=== PATIENT | male | born 1960 | race Caucasian/White ===

== ENCOUNTER 2020-09-16 13:13 | Outpatient (REF) | payer MEDICARE, MEDICAID, SELFPAY ==
[2020-09-16 14:56] LABS: Alanine Aminotransferase 14 U/L (0-40); Albumin Level 3.8 g/dL (3.5-5.0); Alkaline Phosphatase 83 U/L (39-117); Anion Gap 14 (12-20); Aspartate Amino Transferase 16 U/L (5-37); Bilirubin Total 0.4 mg/dL (0.0-1.0); Blood Urea Nitrogen 38 mg/dL (9-16); Calcium 8.6 mg/dL (8.4-10.2); Carbon Dioxide 25 mmol/L (22-29); Chloride 110 mmol/L (96-108); Estimated Glomerular Filt Rate 21; Glucose Random 83 mg/dL (60-115); Potassium 4.6 mmol/L (3.3-5.1); Sodium 144 mmol/L (135-145); Total Protein 6.5 g/dL (6.5-8.0); Uric Acid 6.2 mg/dL (3.4-7.0)
== END 2020-09-16 13:14 | disposition home or self-care (01) ==
LOC: HO.LAB 13:13
PROVIDERS: PCP Internal Medicine; Visit Provider Student in an Organized Health Care Education/Training Program
DX: M10.9 Gout, unspecified (principal); Z79.899 Other long term (current) drug therapy
CPT/HCPCS: 36415; 80053; 84550; 99212

== ENCOUNTER 2021-09-16 12:07 | Outpatient (REF) | payer MEDICARE, MEDICAID, SELFPAY ==
[2021-09-16 13:54] LABS: Alanine Aminotransferase 15 U/L (0-40); Albumin Level 3.9 g/dL (3.5-5.0); Alkaline Phosphatase 74 U/L (39-117); Anion Gap 11 (12-20); Aspartate Amino Transferase 14 U/L (5-37); Bilirubin Total 0.3 mg/dL (0.0-1.0); Blood Urea Nitrogen 65 mg/dL (9-16); Carbon Dioxide 21 mmol/L (22-29); Chloride 110 mmol/L (96-108); Estimated Glomerular Filt Rate 15; Glucose Random 82 mg/dL (60-115); Potassium 5.4 mmol/L (3.3-5.1); Sodium 137 mmol/L (135-145); Total Protein 6.6 g/dL (6.5-8.0)
[2021-09-16 15:10] LABS: Uric Acid 5.9 mg/dL (3.4-7.0)
== END 2021-09-16 12:08 | disposition home or self-care (01) ==
LOC: HO.LAB 12:07
PROVIDERS: PCP Internal Medicine; Visit Provider Nurse Practitioner Family
DX: M10.9 Gout, unspecified (principal)
CPT/HCPCS: 36415; 80053; 84550; 99212

== ENCOUNTER → 2022-04-22 13:15 | Outpatient (BNVA) | payer MEDICARE, MEDICAID, SELFPAY | PROVIDERS: PCP Internal Medicine; Visit Provider Nurse Practitioner Family | DX: M10.9 Gout, unspecified (principal) | CPT/HCPCS: 99212 ==

== ENCOUNTER 2022-05-21 05:41 | Day surgery (SDC) | payer MEDICARE, MEDICAID, SELFPAY ==
[2022-05-12 11:45] VITALS: BMI 34.6
--- NOTE | 2022-05-20 09:41 | HO.ANESPROP2 ---
HPI - Anesthesia Eval Consult details Narrative: 62yo M for Left AV Fistula Creation No dialysis yet (Attempted fistula 3 times previously) [facility] Active Problems Active Problems: All Active Problems (Updated 05/12/22 @ 11:48 by Gisella Centeno RN) Stage 4 chronic kidney disease (Acute) Diabetes mellitus (Acute) Essential (primary) hypertension (Acute) Hyperparathyroidism (Acute) Melanoma in situ (Acute) Sleep apnea (Acute) Stroke (Acute) Gout (Acute) Past Medical History Medical History (Updated 05/12/22 @ 11:48 by Gisella Centeno RN) Chronic kidney disease CVA (cerebral vascular accident) Diabetes Gout HTN (hypertension) Hypothyroid Melanoma Nerve damage Schizoaffective disorder Sleep apnea Surgical History Surgical History (Updated 05/12/22 @ 11:44 by Gisella Centeno RN) H/O colonoscopy Hx of umbilical hernia repair S/P arteriovenous (AV) fistula creation Social History Social History (Updated 05/12/22 @ 10:55 by Gisella Centeno RN) Are you a primary patient care representative to a significant other at home: No Do you presently have visiting nurse or other home services: No Patient Tobacco Use Status: Never used Tobacco Use of substances other than those prescribed or required for medical reasons: No Have you been hit, kicked, punched, or otherwise hurt by someone within the past year? If so, by whom?: No Are you DNR?: No Advance Directives: No Advance Directives Information Provided: Yes (brochure mailed) Advance Directives on File: No Recently lost weight without trying: No Eating poorly because of decreased appetite: No Nutrition Risks: No Nutritional Risk Poor oral hygiene: No (upper & lower partials) Meds Allergies Allergy/AdvReac Type Severity Reaction Status Date / Time aripiprazole [Abilify] Allergy Intermediate Rash Verified 04/22/22 13:37 atorvastatin [Lipitor] Allergy Intermediate elevated Verified 04/22/22 13:37 muscle enzymes fish oil AdvReac Intermediate visual Verified 04/22/22 13:37 disturbance niacin AdvReac Intermediate visual Verified 04/22/22 13:37 [Niaspan Extended-Release] disturbance Home Medications Medication Instructions Recorded Confirmed Last Taken Type cholestyramine (with sugar) 4 gram 1 ea PO DAILY 09/16/20 05/12/22 Unknown History oral powder famotidine 20 mg tablet 20 mg PO BEDTIME 09/16/20 05/12/22 Unknown History risperidone 3 mg tablet (Risperdal) 3 mg PO BID 09/16/20 05/12/22 Unknown History benztropine 0.5 mg tablet 0.5 mg PO BID 09/16/21 05/12/22 Unknown History levothyroxine 25 mcg capsule 75 mcg PO DAILY 09/16/21 05/12/22 Unknown History sitagliptin 25 mg tablet (Januvia) 25 mg PO DAILY 09/16/21 05/12/22 Unknown History aspirin 81 mg tablet,delayed 81 mg PO DAILY 04/22/22 05/12/22 Unknown History release (Adult Low Dose Aspirin) divalproex 500 mg tablet,delayed 500 mg PO BEDTIME 04/22/22 05/12/22 Unknown History release (Depakote) cholecalciferol (vitamin D3) 25 1 tab PO DAILY 05/12/22 05/12/22 Unknown History mcg (1,000 unit) tablet (Vitamin D3) divalproex 250 mg tablet,extended 250 mg PO BEDTIME 05/12/22 05/12/22 Unknown History release 24 hr ezetimibe 10 mg tablet 1 tab PO DAILY 05/12/22 05/12/22 Unknown History perphenazine 8 mg tablet 1 tab PO BEDTIME 05/12/22 05/12/22 Unknown History Exam Exam Date and Time: May 20, 2022 0941 Height,Weight and Vital Signs: Height 5 ft 5 in Weight 94.347 kg Pertinent Lab Results Pertinent Lab Results: CBC 02/2022 WBC 8.6 Hgb 9.4 (L) Hct 28.1 (L) Plt 184 Narrative Narrative: EKG 01/2022 Sinus Tach @ 110 LAD Low volt QRS Nonspecific ST abnormality ECHO 01/2022 Techinically difficult study LV size is normal. LV wall thickness is moderately increased. Ventricular systolic function is vigorous. LVEF visually estimated at 65-75%. No definite regional WMA. Grade I DD with normal LA pressure No obvious valve dysfunction Central venous pressure is mildly elevated Unable to estimate PASP Carotid US 01/2022 Nml carotids with 1-49% stenosis Assessment and Plan Assessment Anesthesia Assessment: Chart Reviewed
[2022-05-21 06:27] VITALS: BP 130/71; PULSE 88; RESP 16; TEMP 36.3; O2SAT 98
[2022-05-21] MEDS: 0.9 % Sodium Chloride 1,000 ML 50 ML IVCONT (06:35)
[2022-05-21 06:37] LABS: Glucose, Whole Blood 83 mg/dL (60-115)
[2022-05-21 06:39] LABS: Anion Gap 17 (12-20); Carbon Dioxide 20 mmol/L (22-29); Chloride 112 mmol/L (96-108); Potassium 4.4 mmol/L (3.3-5.1); Sodium 145 mmol/L (135-145)
--- NOTE | 2022-05-21 07:22 | P.CONAN_ITS ---
[facility] Active Problems Active Problems: All Active Problems (Updated 05/12/22 @ 11:48 by Gisella Centeno RN) Stage 4 chronic kidney disease (Acute) Diabetes mellitus (Acute) Essential (primary) hypertension (Acute) Hyperparathyroidism (Acute) Melanoma in situ (Acute) Sleep apnea (Acute) Stroke (Acute) Gout (Acute) Past Medical History Medical History (Updated 05/12/22 @ 11:48 by Gisella Centeno RN) Chronic kidney disease CVA (cerebral vascular accident) Diabetes Gout HTN (hypertension) Hypothyroid Melanoma Nerve damage Schizoaffective disorder Sleep apnea Family History Family history of problems with anesthesia: No Surgical History Surgical History (Updated 05/12/22 @ 11:44 by Gisella Centeno RN) H/O colonoscopy Hx of umbilical hernia repair S/P arteriovenous (AV) fistula creation History of Problems with Anesthesia: No Social History Social History (Updated 05/12/22 @ 10:55 by Gisella Centeno RN) Are you a primary healthcare economics consultant to a significant other at home: No Do you presently have visiting nurse or other home services: No Patient Tobacco Use Status: Never used Tobacco Use of substances other than those prescribed or required for medical reasons: No Have you been hit, kicked, punched, or otherwise hurt by someone within the past year? If so, by whom?: No Are you DNR?: No Advance Directives: No Advance Directives Information Provided: Yes (brochure mailed) Advance Directives on File: No Recently lost weight without trying: No Eating poorly because of decreased appetite: No Nutrition Risks: No Nutritional Risk Poor oral hygiene: No (upper & lower partials) Meds Allergies Allergy/AdvReac Type Severity Reaction Status Date / Time aripiprazole [Abilify] Allergy Intermediate Rash Verified 04/22/22 13:37 atorvastatin [Lipitor] Allergy Intermediate elevated Verified 04/22/22 13:37 muscle enzymes fish oil AdvReac Intermediate visual Verified 04/22/22 13:37 disturbance niacin AdvReac Intermediate visual Verified 04/22/22 13:37 [Niaspan Extended-Release] disturbance Active Medications: Current Medications Sodium Chloride (Ns) 1,000 mls @ 50 mls/hr IVCONT .Q20H LUZ Last Admin: 05/21/22 06:35 Dose: 50 mls/hr Home Medications Medication Instructions Recorded Confirmed Last Taken Type cholestyramine (with sugar) 4 gram 1 ea PO DAILY 09/16/20 05/12/22 Unknown History oral powder famotidine 20 mg tablet 20 mg PO BEDTIME 09/16/20 05/12/22 Unknown History risperidone 3 mg tablet (Risperdal) 3 mg PO BID 09/16/20 05/12/22 Unknown History benztropine 0.5 mg tablet 0.5 mg PO BID 09/16/21 05/12/22 Unknown History levothyroxine 25 mcg capsule 75 mcg PO DAILY 09/16/21 05/12/22 Unknown History sitagliptin 25 mg tablet (Januvia) 25 mg PO DAILY 09/16/21 05/12/22 Unknown History aspirin 81 mg tablet,delayed 81 mg PO DAILY 04/22/22 05/12/22 Unknown History release (Adult Low Dose Aspirin) divalproex 500 mg tablet,delayed 500 mg PO BEDTIME 04/22/22 05/12/22 Unknown History release (Depakote) cholecalciferol (vitamin D3) 25 1 tab PO DAILY 05/12/22 05/12/22 Unknown History mcg (1,000 unit) tablet (Vitamin D3) divalproex 250 mg tablet,extended 250 mg PO BEDTIME 05/12/22 05/12/22 Unknown History release 24 hr ezetimibe 10 mg tablet 1 tab PO DAILY 05/12/22 05/12/22 Unknown History perphenazine 8 mg tablet 1 tab PO BEDTIME 05/12/22 05/12/22 Unknown History Exam Exam Date and Time: May 21, 202222 Height,Weight and Vital Signs: Height 5 ft 5 in Weight 94.347 kg Last Vital Signs Temp 97.3 F 05/21/22 06:27 Pulse 88 05/21/22 06:27 Resp 16 05/21/22 06:27 BP 130/71 05/21/22 06:27 Pulse Ox 98 05/21/22 06:27 O2 Del Method 05/21/22 06:27 Pertinent Lab Results Pertinent Lab Results: Laboratory Tests 05/21/22 05/21/22 06:12 06:32 Sodium 145 Potassium 4.4 Chloride 112 H Carbon Dioxide 20 L Anion Gap 17 POC Glucose 83 Airway Mallampati Class: III TM Dist: >3cm Neck ROM: Full Assessment and Plan Assessment Anesthesia Assessment: Anesthesia Plan Discussed and Chart Reviewed Final Anesthetic Review Family History of Problems with Anesthesia: No History of Problems with Anesthesia: No NPO: Yes ASA Class: III Final Preanesthetic Review: No Changes in Pt Med Stat, Meds/Allgs Chart Reviewed, Consent Obtained/Reviewed and Anes Risks/Benef Reviewed Patient Risk: Intermediate Procedure Risk: Low Anesthetic Plan Anesthetic Plan: MAC: Disposition: Standard PACU
[2022-05-21 09:41] VITALS: BP 135/63; PULSE 80; RESP 16; TEMP 36.4; O2SAT 100
--- NOTE | 2022-05-21 09:44 | P.OP_ITS ---
Operative Note Operative Note Date of Service: 05/21/22 Narrative: Pre-op Dx: Stage 4/5 CKD Post-op Dx: Stage 4/5 CKD Operation: Left arm brachial artery to antecubital vein AV fistula (side to side anastomosis) Surgeon: Usman Antonio MD Anesthesia: MAC, local Procedure: The patient was placed on the OR table in a supine position. Lower extremity compression devices were placed. The anesthesiologist administered the pre- operative antibiotic. An US of the veins was performed on the left arm. After successful induction of MAC anesthesia, the left arm was prepped and draped in a sterile fashion. A surgical timeout took place. Local anesthetic was used. An incision was made below the crease of the elbow on the forearm. The Bovie electrocautery was used to dissect through the subcutaneous tissue. The antecubital vein, upper arm cephalic vein, upper arm basilic vein, and lower forearm cephalic vein were isolated and skeletonized. Small branches were ligated and divided with 4-0 silk ties. The upper arm cephalic vein and the upper arm basilic vein and the forearm cephalic vein were distended using hep- saline and dilators. The brachial artery was identified, dissected and skeletonized. There was no intimal calcification. Small branches were ligated and divided using 4-0 silk ties. Proximal and distal control was achieved. An arteriotomy was made and the antecubital vein was directly sewn to the brachial artery using a 6-0 Prolene in a running fashion. This was a [id number] anastomosis. The clamps were released and a thrill was noted in all three outflow veins. Hemostasis was maintained. The incision was closed in layers. Surgical glue was applied. The hand was well perfused. The patient tolerated the procedure well. All instrument, sponge and needle counts were correct at the end of the case. Findings: [id number] anastomosis was created between the antecubital vein and the distal brachial artery. There are three outflow veins: the upper arm cephalic vein, the upper arm basilic vein and the forearm cephalic vein. The largest of the three is the upper arm basilic vein. A thrill can be felt in all three outflow veins.
[2022-05-21 09:56] VITALS: BP 135/63; PULSE 84; RESP 16; TEMP 36.4; O2SAT 100
[2022-05-21 10:11] VITALS: BP 120/75; PULSE 85; RESP 14; O2SAT 100
== END 2022-05-21 11:04 | disposition home or self-care (01) ==
PROVIDERS: Nurse Practitioner; PCP Internal Medicine; Visit Provider Transplant Surgery
PROC: (CPT 36821; principal; 2022-05-21 07:30)
DX: E11.22 Type 2 diabetes mellitus with diabetic chronic kidney disease (principal); I12.0 Hypertensive chronic kidney disease with stage 5 chronic kidney disease or end stage renal disease; N18.5 Chronic kidney disease, stage 5; Z79.84 Long term (current) use of oral hypoglycemic drugs; E03.9 Hypothyroidism, unspecified; F25.9 Schizoaffective disorder, unspecified; G47.30 Sleep apnea, unspecified; Z79.899 Other long term (current) drug therapy; Z88.8 Allergy status to other drugs, medicaments and biological substances; Z86.73 Personal history of transient ischemic attack (TIA), and cerebral infarction without residual deficits; Z98.890 Other specified postprocedural states
CPT/HCPCS: 36821; 36415; 80051; 82947; J0690; J1170

== ENCOUNTER → 2022-08-25 12:56 | Outpatient (BNVA) | payer MEDICARE, MEDICAID, SELFPAY | PROVIDERS: PCP Internal Medicine; Visit Provider Nurse Practitioner Family | DX: M10.9 Gout, unspecified (principal) | CPT/HCPCS: 99212 ==

== ENCOUNTER → 2022-12-08 14:38 | Outpatient (BNVA) | payer MEDICARE, MEDICAID, SELFPAY | PROVIDERS: PCP Internal Medicine; Visit Provider Nurse Practitioner Family | DX: M10.9 Gout, unspecified (principal); N18.9 Chronic kidney disease, unspecified; I77.0 Arteriovenous fistula, acquired | CPT/HCPCS: 99212 ==

== ENCOUNTER 2023-05-10 14:05 | Outpatient (AMB) | payer MEDICARE, MEDICAID, SELFPAY ==
--- NOTE | 2023-05-10 14:12 | A.OFFVIS_ITS ---
Intake Vital Signs 05/10/23 14:13 Height 5 ft 5 in Weight 208 lb 5.389 oz BMI 34.7 BP 128/74 Blood Pressure Location Rt brachial Position Sitting Pulse 73 Pulse Source Pulse Oximeter Temp 97.5 F Temp Source Skin Pulse Oximetry (%) 98 Intake Visit Reasons: Gout Intake Note: Patient presents today to follow up on Gout. Denies flare ups. Continues on Allopurinol 150mg daily Last seen 12/08/22 Geri Labs- done XR's- none Trapeze Performer Required: No Accompanied by: Self / Same As Patient Allergies aripiprazole [Abilify] Allergy (Intermediate, Verified 05/10/23 14:17) Rash atorvastatin [Lipitor] Allergy (Intermediate, Verified 05/10/23 14:17) elevated muscle enzymes fish oil Adverse Reaction (Intermediate, Verified 05/10/23 14:17) visual disturbance niacin [Niaspan Extended-Release] Adverse Reaction (Intermediate, Verified 05/10/23 14:17) visual disturbance Medication List - Last Reconciled 05/10/23 by Juve Osorio MD allopurinol 150 mg (1.5 x 100 mg) PO DAILY aspirin (Adult Low Dose Aspirin) 81 mg PO DAILY benztropine 0.5 mg PO BID cholecalciferol (vitamin D3) (Vitamin D3) 1 tab PO DAILY cholestyramine (with sugar) 4 gram 1 ea PO DAILY divalproex (Depakote) 500 mg PO BEDTIME divalproex ER 250 mg PO BEDTIME ezetimibe (Zetia) 10 mg PO DAILY famotidine 20 mg PO BEDTIME ketoconazole 2% 1 appl topical 2XW levothyroxine 75 mcg PO DAILY perphenazine 1 tab PO BEDTIME risperidone (Risperdal) 3 mg PO BID sitagliptin phosphate (Januvia) 25 mg PO DAILY HPI HPI Comments History of Present Illness Details 63-year-old male presents for follow-up of gout. He was last seen by Mariela Yates 11/2022 On allopurinol 150 mg daily. Patient denies any gout attacks for more than 2 years. He states that he is tolerating his allopurinol. He denies any new concerns today. He follows up regularly with his airplane pilot for his advanced stage renal insufficiency. . States that he should start dialysis in about 6 months [facility] Medical History Nerve damage CVA (cerebral vascular accident) Sleep apnea Schizoaffective disorder Melanoma Hypothyroid Diabetes HTN (hypertension) Chronic kidney disease Gout Surgical History H/O colonoscopy Hx of umbilical hernia repair S/P arteriovenous (AV) fistula creation Social History Are you a primary care director to a significant other at home: No Do you presently have visiting nurse or other home services: No Patient Tobacco Use Status: Never used Tobacco Review of Systems Const Reports weight gain Musc Denies arthralgias Physical Exam Vital Signs: Last Vital Signs Temp 97.5 F 05/10/23 14:13 Pulse 73 05/10/23 14:13 BP 128/74 05/10/23 14:13 Pulse Ox 98 05/10/23 14:13 BMI result Body Mass Index 34.7 Const General: cooperative, healthy appearing and comfortable Nutritional Appearance: obese Orientation/consciousness: patient oriented x3 Limitations: no limitations HEENT Head: Yes normocephalic and Yes atraumatic Mouth: moist mucous membranes Resp Effort & Inspection: normal respiratory effort and able to speak in complete sentences Auscultation: clear to auscultation bilaterally Skin General skin exam: no rashes or lesions noted Neuro General: patient oriented x3 Extrem Other: No active synovitis Pitting edema at least 2+ both lower extremities Assessment & Plan Assessment & Plan (1) Gout: Code(s): M10.9 - Gout, unspecified Qualifiers: Gout site: multiple sites Gout etiology: due to renal impairment Chronicity: chronic Presence of tophus: without tophus Qualified Code(s): M1A.39X0 - Chronic gout due to renal impairment, multiple sites, without tophus (tophi) Plan: Gout well controlled on allopurinol 150 mg daily.? Uric acid at goal at 5.8mg/dL (04/09).? ?He has stage 5 chronic kidney disease and follows regularly with Nephrology.? ?Continue allopurinol 150mg daily.? Labs before next visit in 6 months Plan I spent 15 minutes reviewing patient's chart, evaluating patient, ordering diagnostic workup, counseling patient and documenting in the chart Orders: Orders Basic Metabolic Panel 6 Months M10.9 - Gout, unspecified Uric Acid 6 Months M10.9 - Gout, unspecified Coding Level of Care Code Est Pt Level 3 (28547) Diagnoses Chronic gout due to renal impairment of multiple sites without tophus M1A.39X0 Gout site: multiple sites Gout etiology: due to renal impairment Chronicity: chronic Presence of tophus: without tophus
[2023-05-10 14:13] VITALS: BP 128/74; PULSE 73; TEMP 36.4; O2SAT 98; BMI 34.7
== END 2023-05-10 14:40 | disposition home or self-care (01) ==
PROVIDERS: PCP Internal Medicine; Referring Provider Internal Medicine; Visit Provider Student in an Organized Health Care Education/Training Program
DX: M1A.39X0 Chronic gout due to renal impairment, multiple sites, without tophus (tophi) (principal)
CPT/HCPCS: 99213

== ENCOUNTER → 2023-05-10 14:05 | Outpatient (BNVA) | payer MEDICARE, MEDICAID, SELFPAY | PROVIDERS: PCP Internal Medicine; Visit Provider Student in an Organized Health Care Education/Training Program | DX: M1A.39X0 Chronic gout due to renal impairment, multiple sites, without tophus (tophi) (principal) | CPT/HCPCS: 99212 ==

== ENCOUNTER 2023-11-03 13:12 | Outpatient (AMB) | payer MEDICARE, MEDICAID, SELFPAY ==
[2023-11-03 13:16] VITALS: BP 124/76; PULSE 69; O2SAT 99; BMI 33.9
--- NOTE | 2023-11-03 13:16 | A.OFFVIS_ITS ---
Vital Signs 11/03/23 13:16 Height 5 ft 5 in Weight 203 lb 11.314 oz BMI 33.9 BP 124/76 Blood Pressure Location Rt brachial Position Sitting Pulse 69 Pulse Source Pulse Oximeter Pulse Oximetry (%) 99 Oxygen Delivery Method Room Air Intake Visit Reasons: Gout Intake Note: Patient last seen 05/10/23 presents today for follow up and test results. Pt did not complete labs, unable to reach him by phone. Has new #, chart updated. Reports hes been seen at [facility] for celulitis. Has fistula on L arm Reports had ND seen at [facility] Adoption Counselor Required: No Accompanied by: Self / Same As Patient Allergies aripiprazole [Abilify] Allergy (Intermediate, Verified 11/03/23 13:24) Rash atorvastatin [Lipitor] Allergy (Intermediate, Verified 11/03/23 13:24) elevated muscle enzymes fish oil Adverse Reaction (Intermediate, Verified 11/03/23 13:24) visual disturbance niacin [Niaspan Extended-Release] Adverse Reaction (Intermediate, Verified 11/03/23 13:24) visual disturbance Medication List - Last Reconciled 11/03/23 by Juve Osorio MD allopurinol 150 mg (1.5 x 100 mg) PO DAILY aspirin (Adult Low Dose Aspirin) 81 mg PO DAILY benztropine 0.5 mg PO BID cholecalciferol (vitamin D3) (Vitamin D3) 1 tab PO DAILY cholestyramine (with sugar) 4 gram 1 ea PO DAILY divalproex (Depakote) 500 mg PO BEDTIME divalproex ER 250 mg PO BEDTIME ezetimibe (Zetia) 10 mg PO DAILY famotidine 20 mg PO BEDTIME ketoconazole 2% 1 appl topical 2XW levothyroxine 75 mcg PO DAILY metoprolol tartrate 25 mg PO BID perphenazine 1 tab PO BEDTIME risperidone (Risperdal) 3 mg PO BID sitagliptin phosphate (Januvia) 25 mg PO DAILY HPI Comments Details: 63-year-old male presents for follow-up of gout. He was last seen 04/2023 On allopurinol 150 mg daily. Patient denies any gout attacks for more than 2.5 years. He states that he is tolerating his allopurinol. He denies any new concerns today. He follows up regularly with his management architect for his advanced stage renal insufficiency. He has not been started on dialysis. He has a working fistula left forearm. States that he was getting ready for a colonoscopy recently and his heart rate went up to 190. States that he received a medication that stopped and restarted his heart. This sounds to me like an episode of [facility] Medical History Nerve damage CVA (cerebral vascular accident) Sleep apnea Schizoaffective disorder Melanoma Hypothyroid Diabetes HTN (hypertension) Chronic kidney disease Gout Surgical History H/O colonoscopy Hx of umbilical hernia repair S/P arteriovenous (AV) fistula creation Social History Are you a primary nonfarm animal caretaker to a significant other at home: No Do you presently have visiting nurse or other home services: No Patient Tobacco Use Status: Never used Tobacco Review of Systems Musc Denies arthralgias Physical Exam Vital Signs: Last Vital Signs Pulse 69 11/03/23 13:16 BP 124/76 11/03/23 13:16 Pulse Ox 99 11/03/23 13:16 Oxygen Delivery Method Room Air 11/03/23 13:16 BMI result Body Mass Index 33.9 Const General: cooperative, healthy appearing and comfortable Nutritional Appearance: obese Orientation/consciousness: patient oriented x3 Limitations: no limitations HEENT Head: Yes normocephalic and Yes atraumatic Mouth: moist mucous membranes Resp Effort & Inspection: normal respiratory effort and able to speak in complete sentences Auscultation: clear to auscultation bilaterally Skin General skin exam: no rashes or lesions noted Neuro General: patient oriented x3 Extrem Other: No active synovitis Pitting edema at least both lower extremities Assessment & Plan Assessment & Plan (1) Gout: Code(s): M10.9 - Gout, unspecified Category: Medical Qualifiers: Gout site: multiple sites Gout etiology: due to renal impairment Chronicity: chronic Presence of tophus: without tophus Qualified Code(s): M1A.39X0 - Chronic gout due to renal impairment, multiple sites, without tophus (tophi) Plan: Gout well controlled on allopurinol 150 mg daily.? Uric acid at goal at 5.8mg/dL (04/09).? ?He has stage 5 chronic kidney disease and follows regularly with Nephrology.? ?Continue allopurinol 150mg daily.? Patient stated that he had labs done recently and [facility], will request records. Labs before next visit in 6 months Plan I spent 15 minutes reviewing patient's chart, evaluating patient, ordering diagnostic workup, counseling patient and documenting in the chart Orders: Orders Basic Metabolic Panel 6 Months M1A.39X0 - Chronic gout due to renal impairment, multiple sites, without tophus (tophi) Uric Acid 6 Months M1A.39X0 - Chronic gout due to renal impairment, multiple sites, without tophus (tophi)
== END 2023-11-03 13:44 | disposition home or self-care (01) ==
PROVIDERS: PCP Internal Medicine; Visit Provider Student in an Organized Health Care Education/Training Program
DX: M1A.39X0 Chronic gout due to renal impairment, multiple sites, without tophus (tophi) (principal)
CPT/HCPCS: 99213

== ENCOUNTER → 2023-11-03 13:12 | Outpatient (BNVA) | payer MEDICARE, MEDICAID, SELFPAY | PROVIDERS: PCP Internal Medicine; Visit Provider Student in an Organized Health Care Education/Training Program | DX: M1A.39X0 Chronic gout due to renal impairment, multiple sites, without tophus (tophi) (principal); N18.5 Chronic kidney disease, stage 5 | CPT/HCPCS: 99212 ==

== ENCOUNTER 2024-05-03 13:37 | Outpatient (AMB) | payer MEDICARE, MEDICAID, SELFPAY ==
--- NOTE | 2024-05-03 13:42 | A.OFFVIS_ITS ---
Vital Signs 05/03/24 13:47 Height 5 ft 5 in Weight 195 lb 5.273 oz BMI 32.5 BP 122/74 Blood Pressure Location Rt brachial Position Sitting Pulse 78 Pulse Source Pulse Oximeter Pulse Oximetry (%) 95 Oxygen Delivery Method Room Air Intake Visit Reasons: Gout/lvm Intake Note: Patient presents for Gout. Allergies aripiprazole [Abilify] Allergy (Intermediate, Verified 05/03/24 13:46) Rash atorvastatin [Lipitor] Allergy (Intermediate, Verified 05/03/24 13:46) elevated muscle enzymes fish oil Adverse Reaction (Intermediate, Verified 05/03/24 13:46) visual disturbance niacin [Niaspan Extended-Release] Adverse Reaction (Intermediate, Verified 05/03/24 13:46) visual disturbance Medication List - Last Reconciled 05/03/24 by Juve Osorio MD allopurinol 150 mg (1.5 x 100 mg) PO DAILY aspirin (Adult Low Dose Aspirin) 81 mg PO DAILY benztropine 0.5 mg PO BID cholecalciferol (vitamin D3) (Vitamin D3) 1 tab PO DAILY cholestyramine (with sugar) 4 gram 1 ea PO DAILY divalproex (Depakote) 500 mg PO BEDTIME divalproex ER 250 mg PO BEDTIME ezetimibe (Zetia) 10 mg PO DAILY famotidine 20 mg PO BEDTIME ketoconazole 2% 1 appl topical 2XW levothyroxine 75 mcg PO DAILY metoprolol tartrate 25 mg PO BID perphenazine 1 tab PO BEDTIME risperidone (Risperdal) 3 mg PO BID sitagliptin phosphate (Januvia) 25 mg PO DAILY HPI Comments Details: 64-year-old male presents for follow-up of gout. He was last seen 04/2023 On allopurinol 150 mg daily. Patient denies any gout attacks for more than 3 years. He states that he is tolerating his allopurinol. He denies any new concerns today. 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 He has not been started on dialysis. He has a working fistula left forearm. [facility] Medical History Nerve damage CVA (cerebral vascular accident) Sleep apnea Schizoaffective disorder Melanoma Hypothyroid Diabetes HTN (hypertension) Chronic kidney disease Gout Surgical History H/O colonoscopy Hx of umbilical hernia repair S/P arteriovenous (AV) fistula creation Family History Father Heart disease Social History Are you a primary child care center assistant director to a significant other at home: No Do you presently have visiting nurse or other home services: No Patient Tobacco Use Status: Never used Tobacco Review of Systems [facility] [place] Denies arthralgias Physical Exam Vital Signs: Last Vital Signs Pulse 78 05/03/24 13:47 BP 122/74 05/03/24 13:47 Pulse Ox 95 05/03/24 13:47 Oxygen Delivery Method Room Air 05/03/24 13:47 BMI result Body Mass Index 32.5 Const General: cooperative, healthy appearing and comfortable Nutritional Appearance: obese Orientation/consciousness: patient oriented x3 Limitations: no limitations HEENT Head: Yes normocephalic and Yes atraumatic Mouth: moist mucous membranes Resp Effort & Inspection: normal respiratory effort and able to speak in complete sentences Auscultation: clear to auscultation bilaterally Skin General skin exam: no rashes or lesions noted Neuro General: patient oriented x3 Extrem Other: No active synovitis Left forearm AV fistula with a palpable thrill Pitting edema both lower extremities Assessment & Plan Assessment & Plan (1) Gout: Code(s): M10.9 - Gout, unspecified Category: Medical Qualifiers: Gout site: multiple sites Gout etiology: due to renal impairment Chronicity: chronic Presence of tophus: without tophus Qualified Code(s): M1A.39X0 - Chronic gout due to renal impairment, multiple sites, without tophus (tophi) Plan: Gout well controlled on allopurinol 150 mg daily.? ?He has stage 5 chronic kidney disease and follows regularly with Nephrology.? ?Continue allopurinol 150mg daily.? Check uric acid levels today Patient stated that he had labs done recently and [facility], will request records. Labs before next visit in 6 months Plan I spent 15 minutes reviewing patient's chart, evaluating patient, ordering diagnostic workup, counseling patient and documenting in the chart Orders: Orders Basic Metabolic Panel 6 Months M1A.39X0 - Chronic gout due to renal impairment, multiple sites, without tophus (tophi) Uric Acid 6 Months M1A.39X0 - Chronic gout due to renal impairment, multiple sites, without tophus (tophi) Coding Level of Care Code Est Pt Level 3 (97685) Diagnoses Chronic gout due to renal impairment of multiple sites without tophus M1A.39X0 Gout site: multiple sites Gout etiology: due to renal impairment Chronicity: chronic Presence of tophus: without tophus
[2024-05-03 13:47] VITALS: BP 122/74; PULSE 78; O2SAT 95; BMI 32.5
== END 2024-05-03 14:05 | disposition home or self-care (01) ==
PROVIDERS: PCP Internal Medicine; Visit Provider Student in an Organized Health Care Education/Training Program
DX: M1A.39X0 Chronic gout due to renal impairment, multiple sites, without tophus (tophi) (principal)
CPT/HCPCS: 99213